=== PATIENT | female | born 1935 | race Caucasian/White ===

== ENCOUNTER 2017-08-17 12:01 | Day surgery (SDC) | payer MEDICARE ==
[~2017-08-17] VITALS: Ht 160 cm; Wt 104.8 kg
[~2017-08-17 12:01] MED LIST: ALEN70 PO; ALPR.5 PO; ASCO500 PO; ASPI325 PO; ASPI81EC; ASPI81EC PO; AZIT250 PO; CHOL10002 PO; CITRACEL; CYAN500 PO; DILT120ERA PO; DILT300 PO; ESOM20; EZET10; FISH1000 PO; FOLI1; FOLI1 PO; FURO20 PO; GLIM4; GLIP5ER; INSUASPI SC; INSULANPEN; IRBHYD300; LEVSOD125; LEVSOD125 PO; LEVSOD25 PO; LOSA50 PO; MAGCHL64ER PO; MAGN84 PO; METCAR500 PO; METF500C; MULVITMINE PO; OMEP20ER PO; PIND5; PIND5 PO; PINDOLOL; PREG50 PO; PROP60 PO; RANI150; RANI150 PO; SIMV10 PO; SIMV20 PO; TAZTIA XT PO; VITAMIN B 3 PO; Valtrex1000 MG PO; WARF1 PO; WARF2; WARF2 PO; WARF2.5; WARF2.5 PO; [UNRECOGNIZED DRUG - OTHER]; [UNRECOGNIZED DRUG - OTHER]
== END 2017-08-17 16:19 | disposition home or self-care (01) ==
LOC: ORSCSDS 12:01
PROVIDERS: Internal Medicine Gastroenterology
PROC: 0DBH8ZX Excision of Cecum, Via Natural or Artificial Opening Endoscopic, Diagnostic (ICD-10-PCS; principal; 2017-08-17 13:30)
PROC: 3E0H8GC Introduction of Other Therapeutic Substance into Lower GI, Via Natural or Artificial Opening Endoscopic (ICD-10-PCS; principal; 2017-08-17 13:30)
PROC: 0DBM8ZX Excision of Descending Colon, Via Natural or Artificial Opening Endoscopic, Diagnostic (ICD-10-PCS; principal; 2017-08-17 13:30)
DX: Z12.11 Encounter for screening for malignant neoplasm of colon (principal); Z83.71 Family history of colonic polyps; D12.0 Benign neoplasm of cecum; D37.4 Neoplasm of uncertain behavior of colon; K57.30 Diverticulosis of large intestine without perforation or abscess without bleeding; E11.9 Type 2 diabetes mellitus without complications; E03.9 Hypothyroidism, unspecified; G47.33 Obstructive sleep apnea (adult) (pediatric); Z87.891 Personal history of nicotine dependence; E66.01 Morbid (severe) obesity due to excess calories; Z68.41 Body mass index [BMI] 40.0-44.9, adult; Z79.01 Long term (current) use of anticoagulants; Z79.82 Long term (current) use of aspirin; Z79.4 Long term (current) use of insulin; Z79.899 Other long term (current) drug therapy
CPT/HCPCS: 74018; 82947; 88305; J0360; J1980; J2250

== ENCOUNTER 2017-08-18 07:37 | Emergency (ER) | payer MEDICARE ==
[~2017-08-18] VITALS: Ht 160 cm; Wt 104.3 kg
[2017-08-18 09:05] LABS: Adenovirus F 40/41 Not Detected (NOT DETECT); Astrovirus Not Detected (NOT DETECT); Campylobacter Sp Not Detected (NOT DETECT); Cryptosporidium Not Detected (NOT DETECT); Cyclospora Cayetanensis Not Detected (NOT DETECT); E. Coli O157 Not Detected (NOT DETECT); Entamoeba Histolytica Not Detected (NOT DETECT); Enteroaggregative E. coli-EAEC Not Detected (NOT DETECT); Enteropathogenic E. coli-EPEC Not Detected (NOT DETECT); Enterotoxigenic E. coli-ETEC Not Detected (NOT DETECT); Giardia Lamblia Not Detected (NOT DETECT); Norovirus GI/GII Not Detected (NOT DETECT); Plesiomonas Shigelloides Not Detected (NOT DETECT); Rotavirus A Not Detected (NOT DETECT); Salmonella Sp Not Detected (NOT DETECT); Sapovirus Not Detected (NOT DETECT); Shiga Toxin-prod E. coli-STEC Not Detected (NOT DETECT); Shigella/Enteroin E. coli-EIEC Not Detected (NOT DETECT); Vibrio Cholerae Not Detected (NOT DETECT); Vibrio Sp Not Detected (NOT DETECT); Yersinia Enterocolitica Not Detected (NOT DETECT)
[2017-08-18 09:15] LABS: BASOPHILS ABSOLUTE AUTO 0.01 K/mm3 (0.00-0.23); BASOPHILS PERCENT AUTO 0 % (0-2); EOSINOPHILS ABSOLUTE AUTO 0.06 K/mm3 (0.00-0.68); EOSINOPHILS PERCENT AUTO 1 % (0-6); Hemoglobin 15.7 g/dL (11.5-16.0); IMMATURE GRAN ABSOLUTE AUTO 0.03 K/mm3 (0.00-0.10); IMMATURE GRAN PERCENT AUTO 0 % (0-1); LYMPHOCYTES ABSOLUTE AUTO 0.59 K/mm3 (0.84-5.20); LYMPHOCYTES PERCENT AUTO 7 % (21-46); MONOCYTES ABSOLUTE AUTO 0.81 K/mm3 (0.16-1.47); MONOCYTES PERCENT AUTO 9 % (4-13); Mean Corpuscular HGB 28.6 pg (26.0-34.0); Mean Corpuscular Volume 89 fL (80-100); Mean Platelet Volume 9.9 fL (9.1-12.4); NEUTROPHILS ABSOLUTE AUTO 7.62 K/mm3 (1.96-9.15); NEUTROPHILS PERCENT AUTO 84 % (41-73); Platelet Count 194 K/mm3 (150-400); RDW Coefficient Variation 13.2 % (11.7-14.2); RDW Standard Deviation 43.7 fL (35.1-46.3); Red Blood Cell Count 5.48 M/mm3 (3.80-5.20); White Blood Cell Count 9.12 K/mm3 (4.00-11.30)
[2017-08-18 09:26] LABS: International Normalized Ratio 1.1; Prothrombin Time Results 11.5 Sec (9.7-11.5)
[2017-08-18 09:28] LABS: Albumin, Blood 3.3 g/dL (3.4-5.0); Albumin/Globulin Ratio 0.9 (0.8-1.8); Bilirubin, Total 0.7 mg/dL (0.1-1.0); Bun/Creatinine Ratio 14.5 (12.0-20.0); Calcium, Blood 9.2 mg/dL (8.5-10.1); Creatinine, Blood 1.17 mg/dL (0.40-1.00); Globulin, Blood 3.5 g/dL (2.2-4.0); Potassium, Blood 3.6 mmol/L (3.5-5.5); Total Protein, Blood 6.8 g/dL (6.4-8.2)
[2017-08-18 09:31] LABS: Troponin I <0.015 ng/mL (0.000-0.040)
[2017-08-18 10:50] LABS: Free Thyroxine 1.65 ng/dL (0.70-1.60); Magnesium, Blood 1.9 mg/dL (1.6-2.4)
[2017-08-18 10:51] LABS: Thyroid Stimulating Hormone 0.842 uIU/mL (0.360-4.800)
== END 2017-08-18 13:40 | disposition home or self-care (01) ==
LOC: ER 07:37
PROVIDERS: Emergency Medicine; Psychiatry & Neurology Psychiatry
DX: R19.7 Diarrhea, unspecified (principal); R00.1 Bradycardia, unspecified; R11.2 Nausea with vomiting, unspecified; Z88.5 Allergy status to narcotic agent; Z88.8 Allergy status to other drugs, medicaments and biological substances; Z79.899 Other long term (current) drug therapy; Z79.4 Long term (current) use of insulin; Z79.82 Long term (current) use of aspirin; Z79.01 Long term (current) use of anticoagulants; E10.9 Type 1 diabetes mellitus without complications; E03.9 Hypothyroidism, unspecified; I10 Essential (primary) hypertension; Z87.891 Personal history of nicotine dependence
CPT/HCPCS: 36415; 71046; 80053; 83735; 83880; 84439; 84443; 84484; 85025; 85610; 87507; 93005; 93010; 96361; 96374; 99284; J2405; J7030

== ENCOUNTER 2017-08-18 20:09 | Observation (INO) | payer MEDICARE ==
[~2017-08-18] VITALS: Ht 160 cm; Wt 102.6 kg
[2017-08-18 21:29] LABS: BASOPHILS ABSOLUTE AUTO 0.01 K/mm3 (0.00-0.23); BASOPHILS PERCENT AUTO 0 % (0-2); EOSINOPHILS ABSOLUTE AUTO 0.09 K/mm3 (0.00-0.68); EOSINOPHILS PERCENT AUTO 1 % (0-6); Hemoglobin 14.3 g/dL (11.5-16.0); IMMATURE GRAN ABSOLUTE AUTO 0.02 K/mm3 (0.00-0.10); IMMATURE GRAN PERCENT AUTO 0 % (0-1); LYMPHOCYTES PERCENT AUTO 16 % (21-46); MONOCYTES ABSOLUTE AUTO 0.79 K/mm3 (0.16-1.47); MONOCYTES PERCENT AUTO 12 % (4-13); Mean Corpuscular HGB 29.3 pg (26.0-34.0); Mean Corpuscular HGB Conc 33.3 g/dL (31.5-36.5); Mean Corpuscular Volume 88 fL (80-100); Mean Platelet Volume 10.1 fL (9.1-12.4); NEUTROPHILS ABSOLUTE AUTO 4.68 K/mm3 (1.96-9.15); NEUTROPHILS PERCENT AUTO 70 % (41-73); Platelet Count 201 K/mm3 (150-400); RDW Coefficient Variation 13.4 % (11.7-14.2); RDW Standard Deviation 43.7 fL (35.1-46.3); Red Blood Cell Count 4.88 M/mm3 (3.80-5.20); White Blood Cell Count 6.69 K/mm3 (4.00-11.30)
[2017-08-18 21:41] LABS: International Normalized Ratio 1.11; Prothrombin Time Results 11.6 Sec (9.7-11.5)
[2017-08-18 21:57] LABS: Alanine Aminotransfer (ALT/SGP 23 U/L (12-78); Albumin/Globulin Ratio 0.8 (0.8-1.8); Alk Phos 81 U/L (50-136); Anion Gap 9 mmol/L (6-16); Aspartate Aminotrans (AST/SGOT 30 U/L (12-37); Bilirubin, Total 0.8 mg/dL (0.1-1.0); Blood Urea Nitrogen 18 mg/dL (8-24); Bun/Creatinine Ratio 13.2 (12.0-20.0); CO2, Blood 23 mmol/L (21-32); Calcium, Blood 8.4 mg/dL (8.5-10.1); Chloride, Blood 108 mmol/L (98-108); Creatinine, Blood 1.36 mg/dL (0.40-1.00); Globulin, Blood 3.7 g/dL (2.2-4.0); Glomerular Filtration Rate 40 (60-); Glucose, Blood 198 mg/dL (70-99); Sodium, Blood 140 mmol/L (136-145); Total Protein, Blood 6.7 g/dL (6.4-8.2)
[2017-08-19 00:05] LABS: Troponin I 0.027 ng/mL (0.000-0.040)
[2017-08-19 01:29] LABS: CHOL/HDL RATIO 2.3; Cholesterol 136 mg/dL (50-200); HDL Cholesterol 58 mg/dL (>39); LDL/HDL RATIO 0.9; Low Density Lipoprotein Chol 53 mg/dL (0-110); Triglycerides 127 mg/dL (30-160); Very Low Density Lipoprot Chol 25 mg/dL (6-32)
[2017-08-20 05:20] LABS: BASOPHILS ABSOLUTE AUTO 0.02 K/mm3 (0.00-0.23); BASOPHILS PERCENT AUTO 0 % (0-2); EOSINOPHILS ABSOLUTE AUTO 0.18 K/mm3 (0.00-0.68); EOSINOPHILS PERCENT AUTO 2 % (0-6); Hematocrit 40.4 % (33.0-51.0); Hemoglobin 13.3 g/dL (11.5-16.0); IMMATURE GRAN ABSOLUTE AUTO 0.02 K/mm3 (0.00-0.10); IMMATURE GRAN PERCENT AUTO 0 % (0-1); LYMPHOCYTES ABSOLUTE AUTO 2.21 K/mm3 (0.84-5.20); LYMPHOCYTES PERCENT AUTO 29 % (21-46); MONOCYTES ABSOLUTE AUTO 0.95 K/mm3 (0.16-1.47); MONOCYTES PERCENT AUTO 12 % (4-13); Mean Corpuscular HGB Conc 32.9 g/dL (31.5-36.5); Mean Corpuscular Volume 88 fL (80-100); NEUTROPHILS ABSOLUTE AUTO 4.37 K/mm3 (1.96-9.15); NEUTROPHILS PERCENT AUTO 56 % (41-73); Platelet Count 206 K/mm3 (150-400); RDW Coefficient Variation 13.6 % (11.7-14.2); RDW Standard Deviation 43.8 fL (35.1-46.3); Red Blood Cell Count 4.59 M/mm3 (3.80-5.20); White Blood Cell Count 7.75 K/mm3 (4.00-11.30)
[2017-08-20 05:32] LABS: International Normalized Ratio 1.42; Prothrombin Time Results 14.9 Sec (9.7-11.5)
[2017-08-20 05:40] LABS: Albumin, Blood 2.8 g/dL (3.4-5.0); Albumin/Globulin Ratio 0.8 (0.8-1.8); Bilirubin, Total 0.5 mg/dL (0.1-1.0); Bun/Creatinine Ratio 16.7 (12.0-20.0); Calcium, Blood 8.3 mg/dL (8.5-10.1); Creatinine, Blood 1.26 mg/dL (0.40-1.00); Globulin, Blood 3.3 g/dL (2.2-4.0); Total Protein, Blood 6.1 g/dL (6.4-8.2)
[2017-08-21 05:22] LABS: BASOPHILS ABSOLUTE AUTO 0.02 K/mm3 (0.00-0.23); BASOPHILS PERCENT AUTO 0 % (0-2); EOSINOPHILS ABSOLUTE AUTO 0.24 K/mm3 (0.00-0.68); EOSINOPHILS PERCENT AUTO 3 % (0-6); Hematocrit 39.9 % (33.0-51.0); Hemoglobin 13.2 g/dL (11.5-16.0); IMMATURE GRAN ABSOLUTE AUTO 0.03 K/mm3 (0.00-0.10); IMMATURE GRAN PERCENT AUTO 0 % (0-1); LYMPHOCYTES ABSOLUTE AUTO 2.18 K/mm3 (0.84-5.20); LYMPHOCYTES PERCENT AUTO 29 % (21-46); MONOCYTES ABSOLUTE AUTO 0.86 K/mm3 (0.16-1.47); MONOCYTES PERCENT AUTO 11 % (4-13); Mean Corpuscular HGB 29.2 pg (26.0-34.0); Mean Corpuscular HGB Conc 33.1 g/dL (31.5-36.5); Mean Corpuscular Volume 88 fL (80-100); Mean Platelet Volume 11.1 fL (9.1-12.4); NEUTROPHILS PERCENT AUTO 56 % (41-73); Platelet Count 202 K/mm3 (150-400); RDW Coefficient Variation 13.8 % (11.7-14.2); RDW Standard Deviation 44.6 fL (35.1-46.3); Red Blood Cell Count 4.52 M/mm3 (3.80-5.20); White Blood Cell Count 7.53 K/mm3 (4.00-11.30)
[2017-08-21 05:29] LABS: International Normalized Ratio 1.42; Prothrombin Time Results 14.9 Sec (9.7-11.5)
[2017-08-21 05:36] LABS: Bun/Creatinine Ratio 17.6 (12.0-20.0); Calcium, Blood 8.5 mg/dL (8.5-10.1); Creatinine, Blood 1.02 mg/dL (0.40-1.00); Potassium, Blood 4.3 mmol/L (3.5-5.5)
[2017-08-21 11:16] LABS: Hematocrit 41.5 % (33.0-51.0); Hemoglobin 13.6 g/dL (11.5-16.0)
== END 2017-08-21 23:15 | disposition short-term general hospital (02) ==
LOC: ER 20:09 → PCU 20:10 → MEDS 20:10 → PCU 20:10 → MEDS 08-19 13:15 → PCU 08-21 11:31
PROVIDERS: Internal Medicine; Internal Medicine Gastroenterology; Pharmacist; Physician Assistant
PROC: 0DJD8ZZ Inspection of Lower Intestinal Tract, Via Natural or Artificial Opening Endoscopic (ICD-10-PCS; principal; 2017-08-21 16:45)
DX: G45.9 Transient cerebral ischemic attack, unspecified (principal); K62.5 Hemorrhage of anus and rectum; E11.22 Type 2 diabetes mellitus with diabetic chronic kidney disease; I12.9 Hypertensive chronic kidney disease with stage 1 through stage 4 chronic kidney disease, or unspecified chronic kidney disease; N18.3 Chronic kidney disease, stage 3 (moderate); N17.9 Acute kidney failure, unspecified; I48.0 Paroxysmal atrial fibrillation; R00.1 Bradycardia, unspecified; I44.0 Atrioventricular block, first degree; I66.3 Occlusion and stenosis of cerebellar arteries; E04.1 Nontoxic single thyroid nodule; E66.01 Morbid (severe) obesity due to excess calories; E03.9 Hypothyroidism, unspecified; G47.33 Obstructive sleep apnea (adult) (pediatric); K63.9 Disease of intestine, unspecified; K57.90 Diverticulosis of intestine, part unspecified, without perforation or abscess without bleeding; K63.5 Polyp of colon; K64.4 Residual hemorrhoidal skin tags; I25.2 Old myocardial infarction; K64.8 Other hemorrhoids; M81.0 Age-related osteoporosis without current pathological fracture; Z87.891 Personal history of nicotine dependence; Z68.41 Body mass index [BMI] 40.0-44.9, adult; Z79.01 Long term (current) use of anticoagulants; Z86.010 Personal history of colon polyps; Z79.4 Long term (current) use of insulin; Z79.82 Long term (current) use of aspirin; Z79.899 Other long term (current) drug therapy; Z86.718 Personal history of other venous thrombosis and embolism; Z90.49 Acquired absence of other specified parts of digestive tract; Z88.5 Allergy status to narcotic agent; Z88.8 Allergy status to other drugs, medicaments and biological substances
CPT/HCPCS: 36415; 70450; 70496; 70498; 80048; 80053; 80061; 82947; 84484; 85014; 85018; 85025; 85610; 92523; 93005; 93010; 93306; 94762; 96372; 96374; 96376; 97116; 97161; 97165; 99285; G0378; G8978; G8979; G8980; G8987; G8988; G8989; G9162; G9163; G9164; J0360; J1650; J1815; J1980; J7120; Q9967

== ENCOUNTER 2020-10-27 09:54 | Day surgery (SDC) | payer MEDICARE ==
[~2020-10-27] VITALS: Ht 160 cm; Wt 116.0 kg
[~2020-10-27 09:54] MED LIST changes: +ATOR20 PO; +BUME2 PO; +CARV25 PO; +HYDRA50 PO
[2020-10-27] MEDS ORDERED: METO5 PO (10:43)
[2020-10-27] MEDS ORDERED: BASAGLAR K100 UNIT/8 SC (10:45)
[2020-10-27] MEDS ORDERED: FIASP 100100 UNIT/3 SC (10:45)
[2020-10-27 11:27] LABS: International Normalized Ratio 2.29; Prothrombin Time Results 23.6 Sec (9.7-11.5)
--- NOTE | 2020-10-27 13:13 | NUR ---
20 G IV IN LEFT WRIST CLOTTED OFF AND REMOVED WITH INTACT CANNULA.
--- NOTE | 2020-10-27 14:23 | NUR ---
PT ARRIVED BACK TO RECOVERY ROOM IN BED. RACW PERM CATH SITE SOFT NON-TENDER WITH NO HEMATOMA, NO BLEEDING AND INTACT DRESSINGS. CALL LIGHT IN REACH.
--- NOTE | 2020-10-27 14:51 | NUR ---
SLIGHT OOZING NOTED ON PERM CATH DRESSING (NICKEL SIZED). OTHERWISE, NO CHANGES.
--- NOTE | 2020-10-27 14:56 | NUR ---
FULL REPORT PROVIDED RADHA DOWELL TO ASSUME CARE OF PT IN RECOVERY ROOM.
--- NOTE | 2020-10-27 15:46 | NUR ---
CALLED DIALYSIS TO LET THEM KNOW THIS PATIENT HAS HAD A DIALYSIS PORT PLACED.
--- NOTE | 2020-10-27 16:15 | NUR ---
PRESSURE DRESSING PRESSURE DRESSING APPLIED TO UPPER LEFT CHEST SITE. SITE HAD A SLIGHT OOZE. NO HEMATOMA NOTED. WILL CONTINUE TO MONITOR.
--- NOTE | 2020-10-27 18:51 | NUR ---
DISCHARGE PT REMAINED A&OX3. UPPER LEFT CHEST SITE-CDI- NO HEMATOMA NOTED-PRESSURE DRESSING REMOVED-SPLIT 4X4 AND CLOTH DOT REMAIN ON SITES. IV DC'D WITH CANULA IN TACT. PT ABLE TO DRESS SELF WITH LITTLE ASSISANCE. DISCHARGE PAPERWORK GONE OVER WITH PT. PT VERBALLY STATED THE UNDERSTANDING OF THE DISCHARGE EDUCATION AND DENIED ANY QUESTIONS AT THIS TIME. PT WHEELED OUT BY THIS NURSE.
== END 2020-10-27 23:13 | disposition home or self-care (01) ==
LOC: MHTC 09:54
PROVIDERS: Radiology Diagnostic Radiology
DX: E11.22 Type 2 diabetes mellitus with diabetic chronic kidney disease (principal); I12.0 Hypertensive chronic kidney disease with stage 5 chronic kidney disease or end stage renal disease; N18.6 End stage renal disease; I48.0 Paroxysmal atrial fibrillation; E78.5 Hyperlipidemia, unspecified; E03.9 Hypothyroidism, unspecified; E66.9 Obesity, unspecified; N25.81 Secondary hyperparathyroidism of renal origin; Z79.4 Long term (current) use of insulin; Z95.0 Presence of cardiac pacemaker; Z79.01 Long term (current) use of anticoagulants; Z68.42 Body mass index [BMI] 45.0-49.9, adult
CPT/HCPCS: 36558; 76937; 77001; 82947; 85610; 99152; 99153; C1750; C1894; J1644; J2250; J3010; J7030

== ENCOUNTER → 2021-07-02 | Outpatient (CLI) | payer MEDICARE ==
[~2021-07-02] MED LIST changes: +ASPI81CH PO; +BASAGLAR K100 UNIT/8 SC; +EUTHYROX50 MCG PO; +FIASP 100100 UNIT/3 SC; +HUMALOG100 UNIT/1 SC; +METO5 PO; +RENAL VITAMIN0.8 MG PO; +VITAMIN D310 MC5 PO
[2021-07-02 15:27] LABS: Hemoglobin 13.6 g/dL (11.5-16.0); Mean Corpuscular HGB 31.4 pg (26.0-34.0); Mean Corpuscular HGB Conc 32.4 g/dL (31.5-36.5); Mean Corpuscular Volume 97 fL (80-100); Mean Platelet Volume 10.1 fL (9.1-12.4); Platelet Count 233 K/mm3 (150-400); RDW Coefficient Variation 12.9 % (11.7-14.2); RDW Standard Deviation 46.4 fL (35.1-46.3); Red Blood Cell Count 4.33 M/mm3 (3.80-5.20); White Blood Cell Count 10.14 K/mm3 (4.00-11.30)
[2021-07-02 15:49] LABS: Bun/Creatinine Ratio 10.7 (12.0-20.0); Calcium, Blood 9.4 mg/dL (8.5-10.1); Creatinine, Blood 4.29 mg/dL (0.40-1.00); Potassium, Blood 3.4 mmol/L (3.5-5.5)
[2021-07-02 15:53] LABS: International Normalized Ratio 2.11; Prothrombin Time Results 21.1 Sec (9.7-11.5)
[2021-07-02 15:58] LABS: BASOPHILS PERCENT MAN 1 % (0-2); EOSINOPHILS PERCENT MAN 2 % (0-6); LYMPHOCYTES ABSOLUTE MAN 1.82 K/mm3 (0.84-5.20); LYMPHOCYTES PERCENT MAN 18 % (21-46); METAMYELOCYTE PERCENT MAN 1 % (0-0); MONOCYTES PERCENT MAN 6 % (4-13); SEG NEUTROPHILS PERCENT MAN 72 % (41-73); TOTAL CELLS COUNTED 100
== END | disposition home or self-care (01) ==
LOC: LAB SHORT 14:43
PROVIDERS: Internal Medicine
DX: Z01.812 Encounter for preprocedural laboratory examination (principal); N18.6 End stage renal disease
CPT/HCPCS: 80048; 85007; 85027; 85610

== ENCOUNTER 2021-07-03 07:24 | Day surgery (SDC) | payer MEDICARE ==
[~2021-07-03] VITALS: Ht 160 cm; Wt 107.0 kg
[~2021-07-03 07:24] MED LIST changes: -ASPI81CH PO; -HUMALOG100 UNIT/1 SC; -RENAL VITAMIN0.8 MG PO
[2021-07-03] MEDS ORDERED: ASPI81CH PO (07:57)
[2021-07-03 08:40] LABS: Influenza A, PCR NEGATIVE (NEGATIVE); Influenza B, PCR NEGATIVE (NEGATIVE); Resp Syncytial Virus, PCR NEGATIVE (NEGATIVE); SARS-Cov-2 (COVID-19) PCR, MMC NEGATIVE (NEGATIVE)
--- NOTE | 2021-07-03 11:45 | NUR ---
PT DRESSES SELF WITHOUT DIFF. PT IV DC'D. CATH INTACT. PRESSURE DSG APPLIED. NO BLEEDING NOTED. VSS. NADN. PT VERBALIZES UNDERSTANDING WRITTEN AND VERBAL ORDERS. PT DC TO HOME VIA DIAL A RIDE BY [facility]. PERM CATH SITE REMAIN CLEAR
== END 2021-07-03 11:50 | disposition home or self-care (01) ==
LOC: MHTC 07:24
PROVIDERS: Internal Medicine
DX: I12.0 Hypertensive chronic kidney disease with stage 5 chronic kidney disease or end stage renal disease (principal); N18.6 End stage renal disease; E11.22 Type 2 diabetes mellitus with diabetic chronic kidney disease; E11.21 Type 2 diabetes mellitus with diabetic nephropathy; E66.9 Obesity, unspecified; E78.5 Hyperlipidemia, unspecified; E03.9 Hypothyroidism, unspecified; Z88.5 Allergy status to narcotic agent; Z88.8 Allergy status to other drugs, medicaments and biological substances; Z79.4 Long term (current) use of insulin; Z79.01 Long term (current) use of anticoagulants; Z20.822 Contact with and (suspected) exposure to COVID-19
CPT/HCPCS: 0241U; 36558; 36589; 76937; 77001; 99152; 99153; C1750; C1769; C1894; J1644; J2250; J3010; J7040; J7050; Q9967

== ENCOUNTER 2021-08-06 09:00 | Day surgery (SDC) | payer MEDICARE ==
[~2021-08-06] VITALS: Ht 160 cm; Wt 107.0 kg
[~2021-08-06 09:00] MED LIST changes: +ASPI81CH PO
[2021-08-06] MEDS ORDERED: HUMALOG100 UNIT/1 SC (09:49)
[2021-08-06] MEDS ORDERED: RENAL VITAMIN0.8 MG PO (09:57)
--- NOTE | 2021-08-06 12:05 | NUR ---
PT TO RECOVERY ROOM POST PROCEUDRE. PT AWAKE AND CONVERSING APPROPIATELY; DENIES PAIN POST PROCEDURE. MONITOR PACED 60'S, B/P 147/66, AFEBRILE, SPO2 96% RA. R CHEST DIALYSIS CATHETER NO SWELLING/HEMATOMA, TEGADERM DRSG INTACT.
--- NOTE | 2021-08-06 14:20 | NUR ---
PT DRESSED WITH ASSISTANCE, IV REMOVED-CANNULA INTACT.
--- NOTE | 2021-08-06 14:20 | NUR ---
PT RECEIVED DISCHARGE INSTRUCTIONS, MED LIST AND AFTER CARE INSTRUCTIONS, VERBALIZED GOOD UNDERSTANDING. PT LEFT FACILITY VIA W/C, CONDITION STABLE.
== END 2021-08-06 15:26 | disposition home or self-care (01) ==
LOC: MHTC 09:00
DX: T82.41XA Breakdown (mechanical) of vascular dialysis catheter, initial encounter (principal); I12.0 Hypertensive chronic kidney disease with stage 5 chronic kidney disease or end stage renal disease; N18.6 End stage renal disease; E11.22 Type 2 diabetes mellitus with diabetic chronic kidney disease; E11.40 Type 2 diabetes mellitus with diabetic neuropathy, unspecified; I48.91 Unspecified atrial fibrillation; D63.1 Anemia in chronic kidney disease; K21.9 Gastro-esophageal reflux disease without esophagitis; E78.5 Hyperlipidemia, unspecified; E03.9 Hypothyroidism, unspecified; G47.33 Obstructive sleep apnea (adult) (pediatric); Z99.2 Dependence on renal dialysis; Z86.718 Personal history of other venous thrombosis and embolism; N25.81 Secondary hyperparathyroidism of renal origin; Z86.73 Personal history of transient ischemic attack (TIA), and cerebral infarction without residual deficits; Z88.5 Allergy status to narcotic agent; Z79.4 Long term (current) use of insulin; Z79.01 Long term (current) use of anticoagulants; Z79.899 Other long term (current) drug therapy
CPT/HCPCS: 99152; 99153; C1750; C1769; J1644; J2250; J3010; J7040; Q9967

== ENCOUNTER 2021-11-18 00:48 | Emergency (ER) | payer MEDICARE ==
[~2021-11-18 00:48] MED LIST changes: +HUMALOG100 UNIT/1 SC; +RENAL VITAMIN0.8 MG PO
[2021-11-18 08:31] LABS: Appearance, Urine Hazy (Clear); Color, Urine Yellow (P-Yellow); Leukocyte Esterase, Urine 2+ (Neg); Nitrite, Urine Neg (Neg); Protein, Urine 2+ (Neg); Specific Gravity, Urine 1.025 (1.003-1.022)
[2021-11-18 08:32] LABS: Bilirubin, Urine 2+ (Neg); Blood, Urine 1+ (Neg); Glucose Qualitative, Urine Neg (Neg); Ketones, Urine 1+ (Neg); Squamous Epithelial Cells Few /hpf (Few); Urobilinogen, Urine 2+ (Normal)
[2021-11-18 08:33] LABS: Bacteria Many /hpf
[2021-11-18 08:51] LABS: Albumin, Blood 3.1 g/dL (3.4-5.0); Albumin/Globulin Ratio 0.8 (0.8-1.8); Bilirubin, Total 0.3 mg/dL (0.1-1.0); Calcium, Blood 7.4 mg/dL (8.5-10.1); Creatinine, Blood 3.48 mg/dL (0.40-1.00); Globulin, Blood 3.7 g/dL (2.2-4.0); Potassium, Blood 3.9 mmol/L (3.5-5.5); Total Protein, Blood 6.8 g/dL (6.4-8.2)
[2021-11-18 08:52] LABS: BASOPHILS ABSOLUTE AUTO 0.04 K/mm3 (0.00-0.23); BASOPHILS PERCENT AUTO 1 % (0-2); EOSINOPHILS ABSOLUTE AUTO 0.14 K/mm3 (0.00-0.68); EOSINOPHILS PERCENT AUTO 2 % (0-6); Hematocrit 41.3 % (33.0-51.0); Hemoglobin 13.2 g/dL (11.5-16.0); IMMATURE GRAN ABSOLUTE AUTO 0.03 K/mm3 (0.00-0.10); IMMATURE GRAN PERCENT AUTO 0 % (0-1); LYMPHOCYTES ABSOLUTE AUTO 1.31 K/mm3 (0.84-5.20); LYMPHOCYTES PERCENT AUTO 17 % (21-46); MONOCYTES ABSOLUTE AUTO 0.88 K/mm3 (0.16-1.47); MONOCYTES PERCENT AUTO 12 % (4-13); Mean Corpuscular HGB 30.6 pg (26.0-34.0); Mean Corpuscular Volume 96 fL (80-100); NEUTROPHILS ABSOLUTE AUTO 5.18 K/mm3 (1.96-9.15); NEUTROPHILS PERCENT AUTO 68 % (41-73); Platelet Count 257 K/mm3 (150-400); RDW Coefficient Variation 14.1 % (11.7-14.2); RDW Standard Deviation 48.7 fL (35.1-46.3); Red Blood Cell Count 4.32 M/mm3 (3.80-5.20); White Blood Cell Count 7.58 K/mm3 (4.00-11.30)
== END 2021-11-18 06:53 | disposition home or self-care (01) ==
LOC: ER 00:48
PROVIDERS: Student in an Organized Health Care Education/Training Program
DX: N39.0 Urinary tract infection, site not specified (principal); M25.552 Pain in left hip; W18.30XA Fall on same level, unspecified, initial encounter; Y92.9 Unspecified place or not applicable; Z95.0 Presence of cardiac pacemaker; Z99.2 Dependence on renal dialysis; Z88.4 Allergy status to anesthetic agent; Z88.5 Allergy status to narcotic agent
CPT/HCPCS: 71045; 73502; 80053; 81001; 85025; 87086; 93005; 93010; 96361; 96374; 99284-25; J0696; J7030

== ENCOUNTER 2023-04-02 07:13 | Observation (INO) | payer MEDICARE ==
[~2023-04-02] VITALS: Ht 160 cm; Wt 114.5 kg
[~2023-04-02 07:13] MED LIST changes: +DILT120 PO; -DILT120ERA PO
[2023-04-02 08:00] LABS: BASOPHILS ABSOLUTE AUTO 0.06 K/mm3 (0.00-0.23); BASOPHILS PERCENT AUTO 1 % (0-2); EOSINOPHILS ABSOLUTE AUTO 0.29 K/mm3 (0.00-0.68); EOSINOPHILS PERCENT AUTO 3 % (0-6); Hematocrit 33.7 % (33.0-51.0); IMMATURE GRAN ABSOLUTE AUTO 0.04 K/mm3 (0.00-0.10); IMMATURE GRAN PERCENT AUTO 0 % (0-1); LYMPHOCYTES ABSOLUTE AUTO 1.64 K/mm3 (0.84-5.20); LYMPHOCYTES PERCENT AUTO 17 % (21-46); MONOCYTES PERCENT AUTO 10 % (4-13); Mean Corpuscular HGB 32.3 pg (26.0-34.0); Mean Corpuscular HGB Conc 32.6 g/dL (31.5-36.5); Mean Corpuscular Volume 99 fL (80-100); Mean Platelet Volume 9.7 fL (9.1-12.4); NEUTROPHILS ABSOLUTE AUTO 6.91 K/mm3 (1.96-9.15); NEUTROPHILS PERCENT AUTO 70 % (41-73); Platelet Count 228 K/mm3 (150-400); RDW Coefficient Variation 15.5 % (11.7-14.2); RDW Standard Deviation 55.1 fL (35.1-46.3); Red Blood Cell Count 3.41 M/mm3 (3.80-5.20); White Blood Cell Count 9.94 K/mm3 (4.00-11.30)
[2023-04-02 08:21] LABS: Albumin, Blood 3.1 g/dL (3.4-5.0); Bilirubin, Total 0.4 mg/dL (0.1-1.0); Bun/Creatinine Ratio 7.2 (12.0-20.0); Calcium, Blood 11.9 mg/dL (8.5-10.1); Creatinine, Blood 7.38 mg/dL (0.40-1.00); Globulin, Blood 3.2 g/dL (2.2-4.0); Magnesium, Blood 2.6 mg/dL (1.6-2.4); Potassium, Blood 4.6 mmol/L (3.5-5.5); Total Protein, Blood 6.3 g/dL (6.4-8.2)
[2023-04-02 09:10] LABS: Source, Urine Straight Cath
[2023-04-02 09:26] LABS: Appearance, Urine Hazy (Clear); Bilirubin, Urine Neg (Neg); Blood, Urine 2+ (Neg); Color, Urine Yellow (P-Yellow); Glucose Qualitative, Urine Neg (Neg); Ketones, Urine Neg (Neg); Leukocyte Esterase, Urine Neg (Neg); Nitrite, Urine Neg (Neg); Protein, Urine 2+ (Neg); Urobilinogen, Urine NORM (Normal)
[2023-04-02 09:37] LABS: White Blood Cells, Urine 0-2 /hpf (0-5)
[2023-04-02 09:38] LABS: Amorphous Heavy (0-Heavy); Bacteria Mod /hpf; Mucus Light (0-Heavy); Squamous Epithelial Cells Few /hpf (Few); Transitional Epithelial Cells Rare /hpf (0-Rare); Yeast/Fungi Urine Few /hpf
[2023-04-02] MEDS ORDERED: INSULIN LI100 UNIT/5 SC (20:28)
[2023-04-03] VITALS (15 sets, daily range): BP systolic 121–184; BP diastolic 48–93
[2023-04-03 10:44] LABS: Bun/Creatinine Ratio 7.7 (12.0-20.0); Creatinine, Blood 7.67 mg/dL (0.40-1.00); Potassium, Blood 4.6 mmol/L (3.5-5.5)
[2023-04-03] MEDS ORDERED: CARVEDILOL25 M9 PO (11:36)
[2023-04-03 12:59] LABS: International Normalized Ratio 2.68; Prothrombin Time Results 26.6 Sec (9.7-11.5)
[2023-04-03] MEDS ORDERED: ASPIR 8181 M1 PO (14:25)
[2023-04-03] MEDS ORDERED: Calcium Acetat667 MG PO (14:27)
[2023-04-03] MEDS ORDERED: FOLI1 PO (14:28)
[2023-04-03] MEDS ORDERED: LOSA50 PO (14:29)
[2023-04-03] MEDS ORDERED: OMEP20ER PO (14:30)
[2023-04-03] MEDS ORDERED: Vitamin B-Comp1 EACH PO (14:35)
--- NOTE | 2023-04-03 16:02 | NUR ---
1214 TO MEDICAL FLOOR FROM ER, ALERT AND OREINTED, MAKES NEEDS KNOWN, SLOW TO RESPOND, FRIENDS HAVE VISITED, DR DUMONT CONTACTED FOR CONSULT, PATIENTIS A DIALYSIS PATIETN WITH A RIGHT CHEST PORT, PATIENT RESTING, NO SS DISTRESS, CALL LIGHT WITH IN REACH
--- NOTE | 2023-04-03 17:35 | NUR ---
1214 PATIENT IN ROOM FROM ER, MAKES NEEDS KNOWN, USES CALL LIGHT, MED REC COMPLETE, BSC 1-2 PERSON ASSIST WITH GAIT BELT AND FWW, LARGE BM, PATIENT REPORTS THE WEAKNESS THAT STARTED LAST NIGHT HAS IMPROVED, DR DUMONT ROUNDED, POSSIBLE DIALYSIS TOMORROW, DIALYSIS PORT ON RIGHT UPPER CHEST CDI, CALL LIGHT WITH IN REACH, WILL RELAY TO PM RN
--- NOTE | 2023-04-03 21:46 | NUR ---
ASSUMED PT CARE FORM RN ON DAY SHIFT. PT IS A&OX4. DENIES ANY NAUSEA, SOB, OR CHEST PAIN. UP TO BSC WITH 2 ASSIST. VOIDED SMALL AMOUNT OF URINE WITH STOOLED MIXED. RETURNED TO BED. INSTRUMENT PROCESSING TECH AT BEDSIDE, PT RECEIVING DIALYSIS AT THIS TIME.
[2023-04-04] VITALS (12 sets, daily range): BP systolic 84–140; BP diastolic 23–54
[2023-04-04 05:26] LABS: BASOPHILS ABSOLUTE AUTO 0.03 K/mm3 (0.00-0.23); BASOPHILS PERCENT AUTO 0 % (0-2); EOSINOPHILS ABSOLUTE AUTO 0.27 K/mm3 (0.00-0.68); EOSINOPHILS PERCENT AUTO 3 % (0-6); Hematocrit 31.1 % (33.0-51.0); Hemoglobin 10.3 g/dL (11.5-16.0); IMMATURE GRAN ABSOLUTE AUTO 0.03 K/mm3 (0.00-0.10); IMMATURE GRAN PERCENT AUTO 0 % (0-1); LYMPHOCYTES ABSOLUTE AUTO 1.44 K/mm3 (0.84-5.20); LYMPHOCYTES PERCENT AUTO 18 % (21-46); MONOCYTES ABSOLUTE AUTO 1.19 K/mm3 (0.16-1.47); MONOCYTES PERCENT AUTO 15 % (4-13); Mean Corpuscular HGB Conc 33.1 g/dL (31.5-36.5); Mean Corpuscular Volume 97 fL (80-100); Mean Platelet Volume 9.6 fL (9.1-12.4); NEUTROPHILS ABSOLUTE AUTO 5.21 K/mm3 (1.96-9.15); NEUTROPHILS PERCENT AUTO 64 % (41-73); Platelet Count 213 K/mm3 (150-400); RDW Coefficient Variation 15.4 % (11.7-14.2); RDW Standard Deviation 54.9 fL (35.1-46.3); Red Blood Cell Count 3.22 M/mm3 (3.80-5.20); White Blood Cell Count 8.17 K/mm3 (4.00-11.30)
[2023-04-04 05:42] LABS: International Normalized Ratio 2.55; Prothrombin Time Results 25.4 Sec (9.7-11.5)
[2023-04-04 05:56] LABS: Bilirubin, Total 0.5 mg/dL (0.1-1.0); Bun/Creatinine Ratio 6.8 (12.0-20.0); Calcium, Blood 9.6 mg/dL (8.5-10.1); Creatinine, Blood 5.61 mg/dL (0.40-1.00); Magnesium, Blood 2.3 mg/dL (1.6-2.4); Phosphorus, Blood 3.7 mg/dL (2.5-4.9); Potassium, Blood 3.5 mmol/L (3.5-5.5); Thyroid Stimulating Hormone 0.692 uIU/mL (0.360-4.800)
--- NOTE | 2023-04-04 06:58 | NUR ---
SHIFT SUMMARY: DIALYSIS COMPLETE LAST EVENING BY SUPERVISOR SCREEN PRINTING. PT HAS HAD NO COMPLAINTS. EVENING MEDICATIONS GIVEN LATE DUE TO DIALYSIS IN PROGRESS. NO COMPLAINTS DURING THIS SHIFT. CALL LIGHT IN REACH. BED IN LOW POSITION.
--- NOTE | 2023-04-04 15:46 | NUR ---
Patient is lying in bed and alert. She seems with draen and quiet at first but as we talk about her medical condition and the strength and courage she has she begins to engage more. We talk about her world as she lives at [facility] and the her need to go to [facility] for a bit to get her strength back before returning to [place]. She explains about her strong [employer] linda, and solid family connections. I normalize her experience, reinforce helpful attitudes and provide therapeutic listening and prayer. Patient responded well and showed signs of an elevated mood. I will continue to remain available to patient and family.
--- NOTE | 2023-04-04 17:35 | NUR ---
SHIFT SUMMARY PT AXO, PLEASANT AND COOPERATIVE WITH CARE THOUGH [place]. PT HAD DIALYSIS THIS SHIFT. VSS. NO IV IN PLACE AT THIS TIME. NO IV ACCESS ORDER IN PLACE. BLADDER SCAN REVEALED 0ML RETAINED. BED IN LOW POSITION, CALL LIGHT WITHIN REACH. PT COULD ONLY TOLERATE DANGLING AT SIDE OF BED FOR ABOUT 10 MINUTES. NO ACUTE CHANGES THIS SHIFT.
[2023-04-05 04:43] VITALS: BP 125/61
[2023-04-05 05:00] LABS: Hematocrit 29.6 % (33.0-51.0); Hemoglobin 9.6 g/dL (11.5-16.0)
[2023-04-05 05:18] LABS: International Normalized Ratio 1.96; Prothrombin Time Results 19.8 Sec (9.7-11.5)
[2023-04-05 06:07] LABS: Albumin, Blood 3.5 g/dL (3.4-5.0); Anion Gap 5 mmol/L (6-16); Blood Urea Nitrogen 26 mg/dL (8-24); Bun/Creatinine Ratio 5.3 (12.0-20.0); CO2, Blood 31 mmol/L (21-32); Calcium, Blood 9.7 mg/dL (8.5-10.1); Chloride, Blood 103 mmol/L (98-108); Creatinine, Blood 4.87 mg/dL (0.40-1.00); Glomerular Filtration Rate 8 (60-); Glucose, Blood 188 mg/dL (70-99); Magnesium, Blood 2.5 mg/dL (1.6-2.4); Potassium, Blood 3.6 mmol/L (3.5-5.5); Sodium, Blood 139 mmol/L (136-145)
[2023-04-05 07:12] VITALS: BP 115/43
[2023-04-05 07:14] VITALS: BP 117/53
--- NOTE | 2023-04-05 07:23 | NUR ---
END OF SHIFT SUMMARY PT A&O x4, VSS, AFEBRILE. PT CALM AND COOPERATIVE WITH CARE PROVIDED. NO EVENTS OVERNIGHT. PT SLEPT ON AND OFF. PT REQUESTED PRN XANAX FOR ANXIETY AT BEDTIME. R HIP/SCIATIC NERVE PAIN MANAGED WITH PRN APAP, WHICH WAS EFFECTIVE. PT INCONTINENT OF BOWEL AND BLADDER. PT TRANSFERS WITH ASSISTANCE FROM 2 CAREGIVERS TO THE BSC. ORDER FOR NO IV ACCESS IN PLACE. PT WENT TO DIALYSIS YESTERDAY. PT TAKES PILLS WHOLE WITH WATER. PT ABLE TO MAKE NEEDS KNOWN, CALL LIGHT WITHIN REACH, WCTM.
--- NOTE | 2023-04-05 15:15 | NUR ---
Patient is sitting on a chair and alert. She tells me about what she believes the plan to be, having dialysis tomorrow morning and then traferring over to [facility] in the afternoon. She talks about her concerns about being able to keep up with PT/OT activities and the anxiety of a new surrounding with new people. We talk about positive ways to frame this adventure and meaningful ways to lean into her linda. I provide therapeutic listening and prayer. Patient voices much apprecition for the visit and tells me that I am welcome anytime to visit her. I will continue to remain available to patient and family.
[2023-04-05 15:28] VITALS: BP 144/47
[2023-04-05 19:13] VITALS: BP 145/62
--- NOTE | 2023-04-05 19:13 | NUR ---
SHIFT SUMMARY: PT IS ADMITTED FOR WEAKNESS. SHE IS ALERT AND ABLE TO PALMA NEED KNOWN. SHE DIDN'T HAVE DIALYSIS TODAY. WAS INFORMED THAT WOULD BE TOMORROW. FAMILY WAS IN TO VISIT TODAY. ADL S WERE 2P BUT SHE WAS OUT OF BED FOR ABOUT 2 HOURS TODAY AND SITTING IN THE RECLINER.
[2023-04-06] VITALS (17 sets, daily range): BP systolic 96–171; BP diastolic 36–66
[2023-04-06 04:46] LABS: Hematocrit 30.6 % (33.0-51.0); Hemoglobin 9.8 g/dL (11.5-16.0)
--- NOTE | 2023-04-06 04:54 | NUR ---
SHIFT SUMMARY 87 YR F ADMITTED ON 04/03/23 FOR WEAKNESS. DNR. NO ACUTE CHANGES THIS SHIFT. PLAN IS FOR DIALYSIS TODAY THEN DISCHARGE TO [facility]. THIS SHIFT WAS UNEVENTFUL AND PT APPEARS TO HAVE RESTED WELL THROUGHOUT THE NIGHT. SHE IS PLEASANT AND COOPERATIVE WITH CARE.
[2023-04-06 05:03] LABS: International Normalized Ratio 2.17; Prothrombin Time Results 21.8 Sec (9.7-11.5)
[2023-04-06 05:29] LABS: Albumin, Blood 3.3 g/dL (3.4-5.0); Anion Gap 7 mmol/L (6-16); Blood Urea Nitrogen 36 mg/dL (8-24); Bun/Creatinine Ratio 6.3 (12.0-20.0); CO2, Blood 29 mmol/L (21-32); Calcium, Blood 9.9 mg/dL (8.5-10.1); Chloride, Blood 102 mmol/L (98-108); Glomerular Filtration Rate 7 (60-); Glucose, Blood 237 mg/dL (70-99); Magnesium, Blood 2.4 mg/dL (1.6-2.4); Potassium, Blood 3.9 mmol/L (3.5-5.5); Sodium, Blood 138 mmol/L (136-145)
[2023-04-06 14:16] LABS: SARS-Cov-2 (COVID-19) PCR, MMC NEGATIVE (NEGATIVE)
--- NOTE | 2023-04-06 17:52 | NUR ---
PT DISCHARGED FROM THE UNIT. PT LEFT VIA WHEELCHAIR, TO [facility]. REPORT GIVEN TO RADHA
[2023-04-06 21:09] LABS: HEMOGLOBIN A1C 7.8 % (4.8-5.6)
[2023-04-07 17:12] LABS: IMMUNOGLOBULIN A, QN, SERUM 190 mg/dL (64-422); IMMUNOGLOBULIN G, QN, SERUM 515 mg/dL (586-1602); IMMUNOGLOBULIN M, QN, SERUM 292 mg/dL (26-217)
== END 2023-04-06 17:51 ==
LOC: ER 07:13 → MEDS 07:14 → ER 04-03 10:36 → MEDS 04-03 10:36 → ENPENDDIS 04-04 11:53 → MEDS 04-04 15:18
PROVIDERS: Family Medicine; Internal Medicine Nephrology; Student in an Organized Health Care Education/Training Program; ADMIT Hospitalist
DX: N17.9 Acute kidney failure, unspecified (principal); N18.6 End stage renal disease; E11.22 Type 2 diabetes mellitus with diabetic chronic kidney disease; Z66 Do not resuscitate; E03.9 Hypothyroidism, unspecified; R33.9 Retention of urine, unspecified; E87.70 Fluid overload, unspecified; Z86.73 Personal history of transient ischemic attack (TIA), and cerebral infarction without residual deficits; Z88.5 Allergy status to narcotic agent; E83.52 Hypercalcemia; D63.1 Anemia in chronic kidney disease
CPT/HCPCS: 36415; 51701; 51798; 80048; 80053; 80069; 81001; 82947; 83036; 83735; 83970; 84100; 84443; 85014; 85018; 85025; 85610; 86334; 86335; 87086; 93005; 93010; 96360; 96361; 96376; 97110; 97116; 97161; 97165; 97530; 97535; 99285-25; A9270; G0257; G0378; J1815; J2997; J7030; P9047; U0002

== ENCOUNTER 2024-01-24 15:37 | Observation (INO) | payer OTHER ==
[~2024-01-24] VITALS: Ht 160 cm; Wt 113.6 kg
[~2024-01-24 15:37] MED LIST changes: +ASPIR 8181 M1 PO; +CARVEDILOL25 M9 PO; +Calcium Acetat667 MG PO; +INSULIN LI100 UNIT/5 SC; +Vitamin B-Comp1 EACH PO
[2024-01-24 16:50] LABS: BASOPHILS ABSOLUTE AUTO 0.06 K/mm3 (0.00-0.23); BASOPHILS PERCENT AUTO 1 % (0-2); EOSINOPHILS ABSOLUTE AUTO 0.12 K/mm3 (0.00-0.68); EOSINOPHILS PERCENT AUTO 1 % (0-6); Hematocrit 35.7 % (33.0-51.0); Hemoglobin 11.5 g/dL (11.5-16.0); IMMATURE GRAN PERCENT AUTO 1 % (0-1); LYMPHOCYTES ABSOLUTE AUTO 1.32 K/mm3 (0.84-5.20); LYMPHOCYTES PERCENT AUTO 12 % (21-46); MONOCYTES ABSOLUTE AUTO 1.21 K/mm3 (0.16-1.47); MONOCYTES PERCENT AUTO 11 % (4-13); Mean Corpuscular HGB 30.6 pg (26.0-34.0); Mean Corpuscular HGB Conc 32.2 g/dL (31.5-36.5); Mean Corpuscular Volume 95 fL (80-100); Mean Platelet Volume 9.9 fL (9.1-12.4); NEUTROPHILS ABSOLUTE AUTO 8.05 K/mm3 (1.96-9.15); NEUTROPHILS PERCENT AUTO 74 % (41-73); Platelet Count 352 K/mm3 (150-400); RDW Coefficient Variation 14.5 % (11.7-14.2); RDW Standard Deviation 50.1 fL (35.1-46.3); Red Blood Cell Count 3.76 M/mm3 (3.80-5.20); White Blood Cell Count 10.86 K/mm3 (4.00-11.30)
[2024-01-24 17:19] LABS: Albumin, Blood 2.7 g/dL (3.4-5.0); Albumin/Globulin Ratio 0.6 (0.8-1.8); Bilirubin, Total 0.7 mg/dL (0.1-1.0); Bun/Creatinine Ratio 5.2 (12.0-20.0); Calcium, Blood 9.1 mg/dL (8.5-10.1); Creatinine, Blood 3.06 mg/dL (0.40-1.00); Globulin, Blood 4.7 g/dL (2.2-4.0); Potassium, Blood 4.7 mmol/L (3.5-5.5); Total Protein, Blood 7.4 g/dL (6.4-8.2)
[2024-01-24] MEDS ORDERED: Cefepime HCl 1,000 MG in NS 100 ML IV ONE (17:50)
[2024-01-24] MEDS ORDERED: Acetaminophen 325 MG TABLET PO PRN (20:25)
[2024-01-24] MEDS ORDERED: Ondansetron HCl 2 MG / ML 2ML Vial IV PRN (20:30)
[2024-01-24] MEDS ORDERED: Metoprolol Tartrate 1 MG/ML 5 ML VIAL IV PRN (20:30)
[2024-01-24] MEDS ORDERED: Lactobacil 2-S.Thermo-Bifido 1 1 Cap PO SCH (21:00)
[2024-01-24] MEDS ORDERED: Diltiazem HCl 300 MG Cap.CD PO SCH (21:00)
[2024-01-24] MEDS ORDERED: CeFAZolin Sodium 1,000 MG in NS 50 ML IV SCH (21:00)
[2024-01-24] MEDS ORDERED: MIDO5 PO (21:43)
[2024-01-24 22:26] LABS: Prothrombin Time Results 55.9 Sec (9.7-11.5)
[2024-01-24 22:32] LABS: International Normalized Ratio 5.96
[2024-01-24 22:51] VITALS: BP 147/59
[2024-01-25] VITALS (13 sets, daily range): BP systolic 92–158; BP diastolic 23–53
[2024-01-25] MEDS ORDERED: Insulin Glargine-Yfgn 100 Unit/mL 3 ML SYR SC SCH (02:25)
[2024-01-25] MEDS ORDERED: Carvedilol 25 MG Tab PO SCH (02:30)
[2024-01-25 05:19] LABS: Hematocrit 31.2 % (33.0-51.0); Hemoglobin 10.1 g/dL (11.5-16.0); Mean Corpuscular HGB 30.4 pg (26.0-34.0); Mean Corpuscular HGB Conc 32.4 g/dL (31.5-36.5); Mean Corpuscular Volume 94 fL (80-100); Mean Platelet Volume 9.8 fL (9.1-12.4); Platelet Count 339 K/mm3 (150-400); RDW Coefficient Variation 14.5 % (11.7-14.2); RDW Standard Deviation 49.3 fL (35.1-46.3); Red Blood Cell Count 3.32 M/mm3 (3.80-5.20); White Blood Cell Count 8.96 K/mm3 (4.00-11.30)
--- NOTE | 2024-01-25 05:21 | NUR ---
SHIFT SUMMARY NOC PT A/O X 4. PLEASANT AND COOPERATIVE WITH CARE. VSS. ADMIT FROM ED WITH RLQ CELLULITIS, THERE IS AN OPEN WOUND AND PT IS FOLLOWED BY WOUND CARE OUTPATIENT (PICS IN CHART). PT IS ALMOST TOTAL CARE AND WHEELCHAIR/FWW BASELINE. PT IS DECONDITIONED AND WEAK. ON TELE V PACED IN 60'S. PT ALSO HAS ESRD AND A DIALYSIS PT OF DR DUMONT, WHO CAME TO VISIT PT AND INFORMED THEM THAT THEY WOULD HAVE DIALYSIS SESSION TODAY. PT HAS HD PORT [facility]. PT IS DM2 AND CBG 271 WITH 16 UNITS GLARGINE GIVEN. PT HAD ORDER FOR CARDIZEM PO THAT WAS DC BY NEPRHOLOGY AND IS TO BE RESTARTED AT BEDTIME TODAY. PUREWICK IN PLACE DUE TO DECONDITIONING AND URGENCY. PT CURRENTLY RESTING WITH BED IN LOWEST POSITION, AND CALL LIGHT WITHIN REACH.
[2024-01-25 05:40] LABS: Prothrombin Time Results 54.5 Sec (9.7-11.5)
[2024-01-25 05:44] LABS: International Normalized Ratio 5.8
[2024-01-25] MEDS ORDERED: NS 250 ML IV PRN (06:05)
[2024-01-25 06:11] LABS: Albumin, Blood 2.4 g/dL (3.4-5.0); Anion Gap 13 mmol/L (3-11); Blood Urea Nitrogen 22 mg/dL (8-24); Bun/Creatinine Ratio 5.8 (12.0-20.0); CO2, Blood 29 mmol/L (21-32); Calcium, Blood 9.1 mg/dL (8.5-10.1); Chloride, Blood 95 mmol/L (98-108); Creatinine, Blood 3.81 mg/dL (0.40-1.00); Glomerular Filtration Rate 11 (60-); Glucose, Blood 275 mg/dL (70-99); Magnesium, Blood 2.2 mg/dL (1.6-2.4); Phosphorus, Blood 3.7 mg/dL (2.5-4.9); Potassium, Blood 3.8 mmol/L (3.5-5.5); Sodium, Blood 133 mmol/L (136-145)
[2024-01-25] MEDS ORDERED: Insulin Human Lispro 100 Units/ML 3ML Syringe SC SCH (07:30)
[2024-01-25] MEDS ORDERED: Anticoagulant Sod Citrate Soln 3 ML SYR INJ PRN (08:00)
[2024-01-25] MEDS ORDERED: Midodrine 5 MG Tab PO SCH (09:00)
--- NOTE | 2024-01-25 14:18 | NUR ---
Upon receiving a referral for spiritual care, I visited the patient. Patient tells me about her declining health and her need for home care. She talks about her gratitude for being able to live at [facility]. She states that she is much improved from when she was admitted to the hospital and that she will D/C back to [facility]. She welcomes prayer and a blessings as she prepares to D/C, which I gladly provided. Patient voiced her appreciation and showed signs of an elevated mood.
[2024-01-25] MEDS ORDERED: CEPH500 PO (15:10)
[2024-01-25] MEDS ORDERED: PROBIOTIC1 EA14 PO (15:11)
--- NOTE | 2024-01-25 17:41 | NUR ---
PT DISCHARGED HOME. DISCHARGE INSTRUCTIONS DISCUSSED WITH PT. NO QUESTIONS OR CONCERNS AT THIS TIME
[2024-01-25] MEDS ORDERED: Diltiazem HCl 300 MG Cap.CD PO SCH (21:00)
[2024-01-25] MEDS ORDERED: Atorvastatin 10 MG Tab PO SCH (21:00)
[2024-01-25] MEDS ORDERED: CeFAZolin Sodium 1,000 MG in NS 50 ML IV SCH (21:00)
== END 2024-01-25 15:30 | disposition home or self-care (01) ==
LOC: ER 15:37 → MEDS 15:38 → ENPENDDIS 01-25 12:54 → MEDS 01-25 15:30
PROVIDERS: Nurse Practitioner Acute Care; Student in an Organized Health Care Education/Training Program; ADMIT Internal Medicine
DX: L03.311 Cellulitis of abdominal wall (principal); I12.0 Hypertensive chronic kidney disease with stage 5 chronic kidney disease or end stage renal disease; E11.22 Type 2 diabetes mellitus with diabetic chronic kidney disease; N18.6 End stage renal disease; Z99.2 Dependence on renal dialysis; D63.1 Anemia in chronic kidney disease; E87.1 Hypo-osmolality and hyponatremia; I48.91 Unspecified atrial fibrillation; E03.9 Hypothyroidism, unspecified; Z86.73 Personal history of transient ischemic attack (TIA), and cerebral infarction without residual deficits; Z86.718 Personal history of other venous thrombosis and embolism; Z79.01 Long term (current) use of anticoagulants; Z66 Do not resuscitate; Z88.5 Allergy status to narcotic agent; Z88.8 Allergy status to other drugs, medicaments and biological substances
CPT/HCPCS: 36415; 74176; 80053; 80069; 82947; 83605; 83735; 85025; 85027; 85610; 87040; 93005; 93010; 96365; 96367; 96376; 99285-25; A9270; G0257; G0378; J0690; J0692; J1815

== ENCOUNTER 2024-02-21 13:37 | Emergency (ER) | payer OTHER ==
[~2024-02-21] VITALS: Ht 157.5 cm; Wt 95.2 kg
[~2024-02-21 13:37] MED LIST changes: +CEPH500 PO; +MIDO5 PO; +PROBIOTIC1 EA14 PO
[2024-02-21] MEDS ORDERED: TraMADol HCl 50 MG Tab PO ONE (14:30)
[2024-02-21 14:42] LABS: BASOPHILS ABSOLUTE AUTO 0.04 K/mm3 (0.00-0.23); BASOPHILS PERCENT AUTO 0 % (0-2); EOSINOPHILS PERCENT AUTO 1 % (0-6); Hematocrit 32.7 % (33.0-51.0); Hemoglobin 10.5 g/dL (11.5-16.0); IMMATURE GRAN ABSOLUTE AUTO 0.18 K/mm3 (0.00-0.10); IMMATURE GRAN PERCENT AUTO 2 % (0-1); LYMPHOCYTES PERCENT AUTO 18 % (21-46); MONOCYTES ABSOLUTE AUTO 1.27 K/mm3 (0.16-1.47); MONOCYTES PERCENT AUTO 11 % (4-13); Mean Corpuscular HGB 29.7 pg (26.0-34.0); Mean Corpuscular HGB Conc 32.1 g/dL (31.5-36.5); Mean Corpuscular Volume 93 fL (80-100); Mean Platelet Volume 9.7 fL (9.1-12.4); NEUTROPHILS ABSOLUTE AUTO 7.99 K/mm3 (1.96-9.15); NEUTROPHILS PERCENT AUTO 68 % (41-73); Platelet Count 369 K/mm3 (150-400); RDW Coefficient Variation 14.7 % (11.7-14.2); RDW Standard Deviation 49.4 fL (35.1-46.3); Red Blood Cell Count 3.53 M/mm3 (3.80-5.20); White Blood Cell Count 11.68 K/mm3 (4.00-11.30)
[2024-02-21 14:55] LABS: Albumin, Blood 2.3 g/dL (3.4-5.0); Albumin/Globulin Ratio 0.5 (0.8-1.8); Bilirubin, Total 0.4 mg/dL (0.1-1.0); Bun/Creatinine Ratio 6.4 (12.0-20.0); Calcium, Blood 8.8 mg/dL (8.5-10.1); Creatinine, Blood 3.13 mg/dL (0.40-1.00); Globulin, Blood 4.4 g/dL (2.2-4.0); Total Protein, Blood 6.7 g/dL (6.4-8.2)
[2024-02-21 16:15] VITALS: BP 172/95
== END 2024-02-21 17:09 | disposition home or self-care (01) ==
LOC: ER 13:37
PROVIDERS: Emergency Medicine
DX: T80.89XA Other complications following infusion, transfusion and therapeutic injection, initial encounter (principal); R06.02 Shortness of breath; Y84.1 Kidney dialysis as the cause of abnormal reaction of the patient, or of later complication, without mention of misadventure at the time of the procedure; M54.9 Dorsalgia, unspecified; G89.29 Other chronic pain; I12.0 Hypertensive chronic kidney disease with stage 5 chronic kidney disease or end stage renal disease; N18.6 End stage renal disease; E11.22 Type 2 diabetes mellitus with diabetic chronic kidney disease; Z99.2 Dependence on renal dialysis; E03.9 Hypothyroidism, unspecified; I48.91 Unspecified atrial fibrillation; Z79.01 Long term (current) use of anticoagulants; Z79.4 Long term (current) use of insulin; Z79.82 Long term (current) use of aspirin; Z79.890 Hormone replacement therapy; Z79.899 Other long term (current) drug therapy; Z87.891 Personal history of nicotine dependence; Z88.5 Allergy status to narcotic agent
CPT/HCPCS: 71045; 80053; 85025; 93005; 93010; 99285-25; A9270

== ENCOUNTER 2024-02-21 20:03 | Inpatient (IN) | payer OTHER ==
[~2024-02-21] VITALS: Ht 160 cm; Wt 90.7 kg
[2024-02-21] MEDS ORDERED: TraMADol HCl 50 MG Tab PO ONE (21:50)
[2024-02-22] MEDS ORDERED: Dexamethasone Sod Phos 10 MG/ML 1ML VIAL ONE (01:41)
[2024-02-22] MEDS ORDERED: Ketorolac Tromethamine 15mg Vial ONE (01:41)
[2024-02-22] MEDS ORDERED: HYDROcodone 5-APAP 325 TAB ONE ×2 (02:46→05:16)
[2024-02-22 04:09] VITALS: BP 138/70
[2024-02-22 04:59] LABS: BASOPHILS ABSOLUTE AUTO 0.04 K/mm3 (0.00-0.23); BASOPHILS PERCENT AUTO 0 % (0-2); EOSINOPHILS PERCENT AUTO 0 % (0-6); Hematocrit 30.2 % (33.0-51.0); Hemoglobin 9.7 g/dL (11.5-16.0); IMMATURE GRAN ABSOLUTE AUTO 0.29 K/mm3 (0.00-0.10); IMMATURE GRAN PERCENT AUTO 2 % (0-1); LYMPHOCYTES PERCENT AUTO 6 % (21-46); MONOCYTES ABSOLUTE AUTO 1.59 K/mm3 (0.16-1.47); MONOCYTES PERCENT AUTO 9 % (4-13); Mean Corpuscular HGB 29.8 pg (26.0-34.0); Mean Corpuscular HGB Conc 32.1 g/dL (31.5-36.5); Mean Corpuscular Volume 93 fL (80-100); Mean Platelet Volume 10.8 fL (9.1-12.4); NEUTROPHILS ABSOLUTE AUTO 15.11 K/mm3 (1.96-9.15); NEUTROPHILS PERCENT AUTO 83 % (41-73); Platelet Count 370 K/mm3 (150-400); RDW Coefficient Variation 14.9 % (11.7-14.2); RDW Standard Deviation 50.6 fL (35.1-46.3); Red Blood Cell Count 3.25 M/mm3 (3.80-5.20); White Blood Cell Count 18.13 K/mm3 (4.00-11.30)
[2024-02-22 05:19] LABS: Albumin, Blood 2.5 g/dL (3.4-5.0); Albumin/Globulin Ratio 0.6 (0.8-1.8); Bilirubin, Total 0.9 mg/dL (0.1-1.0); Bun/Creatinine Ratio 7.5 (12.0-20.0); Calcium, Blood 9.7 mg/dL (8.5-10.1); Creatinine, Blood 3.86 mg/dL (0.40-1.00); Globulin, Blood 4.5 g/dL (2.2-4.0); Potassium, Blood 4.7 mmol/L (3.5-5.5)
[2024-02-22] MEDS ORDERED: Morphine Sulfate 4 MG/1 ML Injection IV PRN (05:50)
[2024-02-22] MEDS ORDERED: Sennosides 8.6 MG Tab PO PRN (06:20)
[2024-02-22] MEDS ORDERED: Ondansetron HCl 2 MG / ML 2ML Vial IV PRN (06:20)
[2024-02-22 06:43] LABS: BASOPHILS ABSOLUTE AUTO 0.02 K/mm3 (0.00-0.23); BASOPHILS PERCENT AUTO 0 % (0-2); EOSINOPHILS PERCENT AUTO 0 % (0-6); Hematocrit 28.9 % (33.0-51.0); Hemoglobin 9.4 g/dL (11.5-16.0); IMMATURE GRAN ABSOLUTE AUTO 0.18 K/mm3 (0.00-0.10); IMMATURE GRAN PERCENT AUTO 1 % (0-1); LYMPHOCYTES ABSOLUTE AUTO 1.01 K/mm3 (0.84-5.20); LYMPHOCYTES PERCENT AUTO 7 % (21-46); MONOCYTES ABSOLUTE AUTO 0.66 K/mm3 (0.16-1.47); MONOCYTES PERCENT AUTO 4 % (4-13); Mean Corpuscular HGB Conc 32.5 g/dL (31.5-36.5); Mean Corpuscular Volume 92 fL (80-100); Mean Platelet Volume 10.1 fL (9.1-12.4); NEUTROPHILS ABSOLUTE AUTO 13.51 K/mm3 (1.96-9.15); NEUTROPHILS PERCENT AUTO 88 % (41-73); Platelet Count 332 K/mm3 (150-400); RDW Coefficient Variation 15.1 % (11.7-14.2); Red Blood Cell Count 3.13 M/mm3 (3.80-5.20); White Blood Cell Count 15.38 K/mm3 (4.00-11.30)
[2024-02-22 06:57] LABS: International Normalized Ratio 1.14; Prothrombin Time Results 12.1 Sec (9.7-11.5)
[2024-02-22 07:02] LABS: Albumin, Blood 2.5 g/dL (3.4-5.0); Albumin/Globulin Ratio 0.6 (0.8-1.8); Bilirubin, Total 0.7 mg/dL (0.1-1.0); Bun/Creatinine Ratio 7.7 (12.0-20.0); Calcium, Blood 9.6 mg/dL (8.5-10.1); Creatinine, Blood 4.13 mg/dL (0.40-1.00); Globulin, Blood 4.5 g/dL (2.2-4.0); Potassium, Blood 5.3 mmol/L (3.5-5.5)
[2024-02-22 07:24] VITALS: BP 147/75
--- NOTE | 2024-02-22 08:01 | NUR ---
NOTE: RECEIVED A CALL VIA [email or web address] FROM [employer]. PER YUNG SHE IS NOT ABLE TO DO THE MRI D/T PATIENT HAS PACEMAKER AND TO LET THE DR KNOW. NOTIFIED DR. ALEX REGARDING THIS ISSUE.
[2024-02-22] MEDS ORDERED: Ketorolac Tromethamine 15mg Vial IV PRN (08:30)
[2024-02-22] MEDS ORDERED: Acetaminophen 325 MG TABLET PO PRN (08:30)
[2024-02-22] MEDS ORDERED: HYDROcodone 5-APAP 325 TAB PO PRN ×2 (08:30→12:10)
[2024-02-22] MEDS ORDERED: Losartan Potassium 25 MG Tab PO SCH (09:00)
[2024-02-22] MEDS ORDERED: Bumetanide 1 MG Tab PO SCH (09:00)
[2024-02-22] MEDS ORDERED: Midodrine 5 MG Tab PO SCH (09:00)
--- NOTE | 2024-02-22 09:25 | NUR ---
SHIFT SUMMARY PT ARRIVED TO ROOM 349 FROM ER AROUND 0400 VIA GURNEY. PT WAS TRANSFERED TO HOSPITAL BED USING SLIDE SHEET, X3 ASSIST. PT RATES PAIN 8/10 IN HER LOW BACK. PT IS A&OX2, DIFFICULT TO ASSESS D/T PT'S ALERTNESS. PT IS ALSO VERY NEWHALEN. VSS ON RA. PER TELEMETRY PT IS 100% V-PACED AT 91 BPM. PT HAS A DIALYSIS CATHETER TO R UPPER CHEST. PT HAS MULTIPLE WOUNDS T/O, NOTIFIED AND PICTURES IN CHART. 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 RESULTS PENDING. PT STATES SHE IS OLIGURIC, AND ONLY VOIDS ONCE A DAY. PT HAS HAD NO OUTPUT FOR THIS RN. BG <425, NOTIFIED. PT REMAINS NPO FOR A SCHEDULED MRI. BED IN LOWEST POSITION, CALL LIGHT WITHIN REACH. BED ALARM SET FOR PT'S SAFETY.
[2024-02-22] MEDS ORDERED: Insulin Regular 100 UNIT/ML 10ML Vial SC SCH ×2 (12:00→16:30)
[2024-02-22] MEDS ORDERED: Insulin Regular 100 UNIT/ML 10ML Vial SC ONE (12:35)
[2024-02-22] MEDS ORDERED: NS 100 ML IV ONE (13:22)
[2024-02-22] MEDS ORDERED: CefTRIAXone 1000 MG Vial ONE (13:22)
[2024-02-22] MEDS ORDERED: CefTRIAXone Sodium 1,000 MG in NS 100 ML IV SCH (13:30)
[2024-02-22] MEDS ORDERED: NS 250 ML IV PRN (13:35)
[2024-02-22 15:39] VITALS: BP 132/58
[2024-02-22] MEDS ORDERED: Insulin Human Lispro 100 Units/ML 3ML Syringe SC SCH ×2 (16:30)
--- NOTE | 2024-02-22 17:44 | NUR ---
SHIFT SUMMARY: PATIENT A/OX3-4, VERY [place]-HEARING AID TO BILAT EARS IN PLACED. PATIENT PLEASANT AND COOPERATIVE c CARE AND USES CALL LIGHT APPROPRIATELY. PATIENT REPORTS PAIN TO LOWER BACK, REPOSITIONED AND MEDICATED FOR PAIN PER EMAR c GOOD EFFECT. PATIENT HAS ABDOMINAL WOUND, DRESSING CHANGED PER ORDER. PATIENT CONSULT TO GENERAL SURGEON-DR. BONILLA AND ORTHOPEDICS-DR. SAMSON WAS CALLED IN TODAY, AWAITING FOR SURGEON TO SEE THE PATIENT. PATIENT CBG ELEVATED RANGES [id number], MEDICATED c INSULIN PER EMAR COVERAGE, DR. ALEX AWARE OF THIS ISSUE. PATIENT RECEIVED IV ABX/SCHEDULED MEDS PER EMAR. VITAL SIGNS REVIEWED. BED ALARM ON FOR SAFETY. CALL LIGHT IN REACH.
--- NOTE | 2024-02-22 18:48 | NUR ---
ADDITIONAL NOTE: PATIENT ON TELE, V-PACED IN THE HIGH 80'S BPM. DENIES CP/PRESSURE, SOB, N/V AND DIZZINESS.
[2024-02-22] MEDS ORDERED: Carvedilol 25 MG Tab PO SCH (21:00)
[2024-02-22] MEDS ORDERED: Atorvastatin 10 MG Tab PO SCH (21:00)
[2024-02-22] MEDS ORDERED: Aspirin 81 MG Chew PO SCH (21:00)
[2024-02-22 21:37] VITALS: BP 129/61
[2024-02-23 03:07] VITALS: BP 96/56
--- NOTE | 2024-02-23 04:33 | NUR ---
Pt calling out at times c/o pain. Medicated per orders. Repositioned as [id number] and requested Dressing change done to right buttocks. resting quietly at this time.
--- NOTE | 2024-02-23 05:53 | NUR ---
Call received from [email or web address] regarding changes in cardiac rhythm. response immediate, pt found unresponsive. No resp noted. Thready pulse noted. Rapid response called. Charge nurse Adore Marks, cook room supervisor, and MD at bedside. Pt pronounced at 05:30 am. Family notified. Awaiting return call from family for home.
[2024-02-23] MEDS ORDERED: Omeprazole 20 MG CapCR PO SCH (06:00)
[2024-02-23] MEDS ORDERED: Levothyroxine Sodium 0.1 MG Tab PO SCH (06:00)
[2024-02-23] MEDS ORDERED: Sodium Zirconium Cyclosilicate 10 GM Packet PO SCH (09:00)
== END 2024-02-23 05:30 | DRG 347 ==
LOC: ER 20:03 → MEDS 20:04
PROVIDERS: ADMIT Family Medicine
DX: S32.14XA Type 1 fracture of sacrum, initial encounter for closed fracture (principal); N18.6 End stage renal disease; I48.20 Chronic atrial fibrillation, unspecified; I12.0 Hypertensive chronic kidney disease with stage 5 chronic kidney disease or end stage renal disease; E87.1 Hypo-osmolality and hyponatremia; Z66 Do not resuscitate; E11.22 Type 2 diabetes mellitus with diabetic chronic kidney disease; E03.9 Hypothyroidism, unspecified; W18.39XA Other fall on same level, initial encounter; M47.816 Spondylosis without myelopathy or radiculopathy, lumbar region; M51.36 Other intervertebral disc degeneration, lumbar region; G47.33 Obstructive sleep apnea (adult) (pediatric); E87.5 Hyperkalemia; D63.1 Anemia in chronic kidney disease; E87.70 Fluid overload, unspecified; E88.09 Other disorders of plasma-protein metabolism, not elsewhere classified; L98.499 Non-pressure chronic ulcer of skin of other sites with unspecified severity; L08.9 Local infection of the skin and subcutaneous tissue, unspecified; Z86.73 Personal history of transient ischemic attack (TIA), and cerebral infarction without residual deficits; Z99.2 Dependence on renal dialysis; Z86.718 Personal history of other venous thrombosis and embolism; Z79.01 Long term (current) use of anticoagulants; Z87.891 Personal history of nicotine dependence; Z88.5 Allergy status to narcotic agent; Z88.8 Allergy status to other drugs, medicaments and biological substances; Z79.82 Long term (current) use of aspirin; Z79.890 Hormone replacement therapy; Z79.4 Long term (current) use of insulin
CPT/HCPCS: 36415; 70450; 72070; 72100; 72131; 80053; 82947; 83036; 85025; 85610; 87070; 87075; 87205; 94760; 96374; 96375; 96376; 99285-25; A9270; G0378; J0696; J1100; J1815; J1885; J7050